=== PATIENT | male | born 1980 | race Caucasian/White ===

== ENCOUNTER 2022-02-14 12:03 | Emergency (ER) | payer OTHER ==
[~2022-02-14] VITALS: Ht 167.6 cm; Wt 105.2 kg
[2022-02-14 12:08] VITALS: BP 160/99
--- NOTE | 2022-02-14 12:34 | NUR ---
41 Y/O MALE BIB SELF C/O LAC ON LEFT PALM, PER PT A NAIL CUTTER SAW CUT THE AREA, AROUND 30 MIN AGO, BLEEDING CONTROLLED. LAST TDAP 4 YEARS AGO NKA PMH: DENIES
[2022-02-14] MEDS ORDERED: LIDOCAINE MPF 1% 10 ML ONE (13:01)
[2022-02-14] MEDS ORDERED: LIDOCAINE MPF 1% 10 MG/ML VIAL INJ ONE (13:05)
[2022-02-14] MEDS ORDERED: BACI-416 TP (14:09)
[2022-02-14] MEDS ORDERED: IBUP-2213 PO (14:09)
[2022-02-14] MEDS ORDERED: CEPH-588 PO (14:09)
[2022-02-14] MEDS ORDERED: LIDOCAINE 1% 500 MG/ 50 ML VIAL INJ ONE (14:15)
--- NOTE | 2022-02-14 14:15 | NUR ---
WOUND IRRIGATED AND DRESSED WITH NON ADHERENT AND VOLAR SPLINT APPLIED
--- NOTE | 2022-02-14 14:18 | NUR ---
Patient discharged with v/s stable. Written and verbal after care instructions ABOUT LAC CARE given and explained. Patient alert, oriented and verbalized understanding of instructions. Ambulatory with steady gait. All questions addressed prior to discharge. ID band removed. Patient advised to follow up with PMD. Rx of BACITRACIN, KELFEX, MOTRIN given. Patient educated on indication of medication including possible reaction and side effects. Opportunity to ask questions provided and answered.
== END 2022-02-14 14:18 | disposition home or self-care (01) ==
LOC: MED 12:03
DX: S61.412A Laceration without foreign body of left hand, initial encounter (principal); W45.8XXA Other foreign body or object entering through skin, initial encounter; Y93.89 Activity, other specified; Y92.89 Other specified places as the place of occurrence of the external cause; Y99.0 Civilian activity done for income or pay
CPT/HCPCS: 12002; 73130; 99283; J2001